=== PATIENT | male | born 1950 | race African-American/Black ===

== ENCOUNTER 2022-12-14 04:35 | Day surgery (SDC) | payer OTHER, BC ==
[2022-12-10 12:57] VITALS: BMI 27.3
[2022-12-14 15:12] VITALS: TEMP 97.8
[2022-12-14 15:34] VITALS: BP 154/83; PULSE 59; RESP 18
== END 2022-12-14 15:41 | disposition home or self-care (01) ==
LOC: JASU-ENDO 04:35
PROVIDERS: ATTEND Student in an Organized Health Care Education/Training Program
PROC: 0DBH8ZX Excision of Cecum, Via Natural or Artificial Opening Endoscopic, Diagnostic (ICD-10-PCS; principal; 2022-12-14 16:00)
DX: Z12.11 Encounter for screening for malignant neoplasm of colon (principal); D12.0 Benign neoplasm of cecum
CPT/HCPCS: 88305-TC